=== PATIENT | male | born 1965 | race Caucasian/White ===

== ENCOUNTER → 2024-04-30 14:00 | Outpatient (REF) | payer OTHER, SELFPAY | LOC: HWRAD 14:00 | PROVIDERS: ATTENDING PHYSICIAN Surgery; FAMILY PHYSICIAN Family Medicine | DX: N20.0 Calculus of kidney (principal) | CPT/HCPCS: 76775 ==

== ENCOUNTER 2024-12-30 11:30 | Emergency (ER) | payer OTHER, SELFPAY ==
[2024-12-30 11:39] VITALS: BP 169/100
[2024-12-30] MEDS: VALIUM 2 MG PO (13:06)
[2024-12-30] MEDS: TORADOL 15 MG IM (13:07)
--- NOTE | 2024-12-30 13:07 | ED.GENMED ---
History of Present Illness
General
Chief Complaint: Musculo-Skeletal Complaint
Time Seen by Provider: 12/30/24 12:04
History of Present Illness
History of Present Illness:
59-year-old male with history of hypertension and diabetes presenting to the emergency department for right-sided back pain. Patient reports symptoms for the past week. Pain is on the right side of the back, radiates down his leg to his knee.
Pain waxes and wanes with intermittent episodes of severe pain. Notes chronic neuropathy, denies any acute numbness or tingling. Denies any recent injury or trauma. Denies fever. Denies bowel or bladder complaints. Does report history of
sciatica to the left side of his back, saw orthopedics and had injections. Patient did see his primary care doctor for this pain, was prescribed a steroid pack and cyclobenzaprine with mild relief. Denies any weakness. Denies additional acute
medical complaints
Past History
Past History
ED Past Medical History: HTN and Other (sciatica, Herniated disc, Kidney stones)
ED Past Surgical History: Orthopedic and Other (vasectomy)
Social History
Tobacco: Non-smoker
Alcohol: Occasional
Drug: None
Personal:
Living: with family
Employment: Employed
Family History
Family History: Hypertension and CAD
Phy Exam
Physical Exam
Physical Exam:
General: Well-appearing, no clinical signs of dehydration, nontoxic and in no acute distress
HEENT: protecting airway
Neck: appears supple
CV: Normal heart rate, regular rhythm
Resp: No accessory muscle use, no increased work of breathing, lungs clear to auscultation bilaterally
Abd: No distention
Extremities: No deformities, no swelling. Distal sensation and pulses intact. Range of motion to the right lower extremity is intact. Mild tenderness to the right lower lumbar musculature. No overlying skin changes.
Neuro: alert, no focal neurologic deficit
: deferred
Rectal: deferred
Psych: Normal affect
Skin: Intact
Course
Orders/Labs/Results
Orders:
Orders
12/30/24 12:34
Diazepam [Valium] 2 mg PO NOW STA
Ketorolac [Toradol] 15 mg IM NOW STA
US Periph Venous LOWER Ext RT Urgent
Comment:
Reason For Exam: pain
Vital Signs
Initial and Last Documented VS:
Initial Vital Signs
Temp Pulse Resp BP Pulse Ox
98.0 F 77 16 169/100 98
12/30/24 11:39 12/30/24 11:39 12/30/24 11:39 12/30/24 11:39 12/30/24 11:39
Last Documented Vital Signs
Temp Pulse Resp BP Pulse Ox
98.0 F 77 16 169/100 98
12/30/24 11:39 12/30/24 11:39 12/30/24 11:39 12/30/24 11:39 12/30/24 11:39
MDM/Problems Addressed
MDM/Problems Addressed:
59-year-old male with history of hypertension and diabetes presenting for right lower extremity pain. Vital signs on arrival significant for high blood pressure.
On exam patient is resting comfortably, however while in examination room, did have episode of pain. Overall benign examination of the right lower extremity. No infectious findings no neurovascular compromise. No report of trauma with range of
motion intact. Do not suspect any spinal fracture in the absence of any direct trauma, and no midline spinal tenderness. No fever, systemic symptoms, or midline tenderness, without concern for spinal abscess or infection. No red flag such as
bowel or bladder incontinence, focal weakness, or any sensory deficits on exam, without present concern for spinal compression. Symptoms are consistent with sciatica. Patient does have some mild tenderness to the right calf. Will screen with
ultrasound to ensure no DVT. Valium and Toradol administered for pain. Will reassess.
15:15 - Ultrasound without evidence of DVT. At this time feel stable for discharge with continued outpatient supportive therapy. Patient has an appointment already scheduled with orthopedics tomorrow. Return precautions discussed and patient
verbalized understanding
*Critical Care Note
Total Time (30-74mins, 75-104mins- exclusive of procedures): Not Applicable
ED Attending Note
-
Portions of this chart may have been created with voice recognition software.� Occasional wrong word or��sound alike� substitutions may have occurred due to the inherent limitations of voice recognition software.
Discharge Plan
Departure
Prescriptions:
No Action
aspirin [Aspir-Low] 81 MG tablet,delayed release (DR/EC)
81 mg PO DAILY
coenzyme [id number] [Co Q-10 (with Vit E)] 1 EACH capsule
1 ea PO DAILY
Cinnamon
1,000 mg PO DAILY
Echinacea
1 tab PO DAILY
Multivitamin
1 tab PO DAILY
Vitamin D
1,000 units PO DAILY
omeprazole [Prilosec] 10 MG capsule,delayed release(DR/EC)
10 mg PO DAILY
ibuprofen [Advil] 200 MG tablet
600 mg PO PRN PRN (Reason: pain)
olmesartan 20 MG tablet
20 mg PO DAILY
Zinc Tab
5 mg PO DAILY
fexofenadine [Rosi] 180 MG tablet
180 mg PO DAILY
montelukast 10 MG tablet
10 mg PO DAILY
Referrals:
Luis Arevalo MD [Family Provider] -
Interventions
Interventions:
*Risk Screen - Suicide Last Done: 12/30/24 11:39
*General Assessment Last Done: 12/30/24 13:13
*Neglect/Abuse Screening Last Done: 12/30/24 11:39
*ED- Fall Risk Assessment Last Done: 12/30/24 13:13
ED-Musculoskeletal Assessment Last Done: 12/30/24 13:13
Discharge Date and Time
Print Language: SPANISH
[2024-12-30 13:12] VITALS: BMI 49.2
== END 2024-12-30 16:03 | disposition home or self-care (01) ==
LOC: EMR 11:30
PROVIDERS: EMERGENCY PHYSICIAN Student in an Organized Health Care Education/Training Program; FAMILY PHYSICIAN Family Medicine; OTHER PHYSICIAN Physical Medicine & Rehabilitation
DX: M79.604 Pain in right leg (principal); M54.9 Dorsalgia, unspecified; I10 Essential (primary) hypertension; E11.9 Type 2 diabetes mellitus without complications; Z87.39 Personal history of other diseases of the musculoskeletal system and connective tissue
CPT/HCPCS: 96372; 99284; 93971

== ENCOUNTER 2025-02-16 05:56 | Day surgery (SDC) | payer OTHER, SELFPAY ==
[2025-01-31 13:52] VITALS: BMI 44.3
[2025-01-31 13:56] LABS: Hematocrit 49.6 % (39.0-52.0); Hemoglobin 16.5 g/dL (13.0-18.0); Mean Corp Hgb Conc. 33.3 g/dL (33.0-37.0); Mean Corpuscular Hgb 27.6 pg (27.0-31.0); Mean Corpuscular Volume 82.9 fL (80.0-94.0); Mean Platelet Volume 10.2 fL (7.4-10.4); Platelet Count 323 10^3/uL (130-400); Red Blood Cell Count 5.98 10^6/uL (4.70-6.10); Red Cell Dist. Width 14.6 % (11.5-14.5); White Blood Cell Count 9.3 10^3/uL (4.8-10.8)
[2025-01-31 14:19] LABS: ALT (SGPT) 31 U/L (0-50); AST (SGOT) 28 U/L (17-59); Albumin 4.1 g/dl (3.5-5.0); Alkaline Phosphatase 77 U/L (38-126); Blood Urea Nitrogen 16 mg/dl (9-20); Calcium 9.4 mg/dl (8.4-10.2); Carbon Dioxide 27 mmol/L (22-30); Chloride 102 mmol/L (98-107); Estimated Creatinine Clearance 122 ml/min; Glucose 138 mg/dl (70-99); Potassium 4.5 mmol/L (3.5-5.1); Sodium 138 mmol/L (135-145); Total Bilirubin 0.5 mg/dl (0.2-1.3); Total Protein 7.3 g/dl (6.3-8.2); eGFR > 60.00
[2025-02-16] VITALS (12 sets, daily range): BP systolic 93–155; BP diastolic 53–88; PULSE 116; O2SAT 95; BMI 44.3
[2025-02-16] MEDS: CELEBREX 200 MG PO (06:35)
[2025-02-16] MEDS: LYRICA 150 MG PO (06:35)
[2025-02-16] MEDS: TYLENOL 1000 MG PO (06:36)
[2025-02-16] MEDS: METHOCARBAMOL 1500 MG PO (06:36)
[2025-02-16 06:49] LABS: Glucose - Point of Care 100 mg/dl (70-99)
[2025-02-16] MEDS: NORMOSOL-R/PLASMALYTE-A 1000 IV ×3 (06:51→19:59)
[2025-02-16 08:55] LABS: Glucose - Point of Care 119 mg/dl (70-99)
[2025-02-16] MEDS: MORPHINE SULFATE 2 MG IV (09:08)
[2025-02-16] MEDS: MORPHINE SULFATE 4 MG IV (09:28)
--- NOTE | 2025-02-16 10:17 | PTCARENOTE ---
Pt arrived to [facility] at 0945 from PACU in a bed. 93% on 2L of O2. Back dressing with gauze and tegaderm C/D/I. Neurovascular checks started on all 4 extremities. Blood sugar 119 upon arrival. DTV and PVR once pt voids. Admission questions answered.
Care ongoing.
[2025-02-16 10:35] LABS: Glucose - Point of Care 129 mg/dl (70-99)
[2025-02-16] MEDS: FARXIGA 10 MG PO (10:36)
[2025-02-16] MEDS: FLOMAX 0.4 MG PO (10:36)
[2025-02-16] MEDS: ULTRAM 50 MG PO ×3 (10:36→21:35)
[2025-02-16] MEDS: PROTONIX 40 MG PO (10:36)
[2025-02-16 11:50] LABS: Glucose - Point of Care 129 mg/dl (70-99)
[2025-02-16] MEDS: ANCEF 5 IV ×2 (14:35→21:35)
--- NOTE | 2025-02-16 16:15 | W.PN.UPDATE ---
Update Note
Progress Note Update
Lumbar stenosis w/ neurogenic claudication s/p R�L3-L4 hemilaminectomy and�discectomy w/ [facility]ague 02/16/25
- s/p L L4-L5 lumbar discectomy and L5-S1 hemilami w/ [facility]ague 06/2015
DVT prophylaxis - b/l SCDs/TEDS
- Resume ASA POD 5 if hemodynamically stable
HTN - + parameters - monitor BP
ANN, compliant w/ CPAP - monitor O2
- IS
- Resume CPAP HS
NIDDM - monitor BS
- Resume home meds
- + SSI AC while admitted
- Diabetic, carb controlled diet
GERD - continue daily PPI
Ambulatory dysfunction w/ balance difficulties - on fall precautions
- PT/OT
Sciatica - add Lyrica
Reported urinary retention after previous discectomy - monitor voids and PVRs
- Add daily Flomax
Recurrent nephrolithiasis
Cholelithiasis
Hepatic steatosis
DJD
[2025-02-16 16:51] LABS: Glucose - Point of Care 131 mg/dl (70-99)
--- NOTE | 2025-02-16 17:42 | DOWNTIME ---
There was a [employer] Downtime on 02/16/2025 from 1230 to 02/16/2025 at 1550. Downtime documentation of patient's care, including medication administrations, has been reconciled in the electronic record per guidelines. Refer to the
patient's paper chart under the miscellaneous tab to see printed paper medication records and downtime forms.
[2025-02-16] MEDS: COLACE 100 MG PO (19:59)
[2025-02-16] MEDS: LYRICA 75 MG PO (19:59)
[2025-02-16] MEDS: SENOKOT 17.2 MG PO (20:00)
[2025-02-16] MEDS: SINGULAIR 10 MG PO (21:35)
[2025-02-16] MEDS: BENICAR 20 MG PO (21:35)
[2025-02-16 21:37] LABS: Glucose - Point of Care 123 mg/dl (70-99)
[2025-02-17 03:02] VITALS: BP 100/49
[2025-02-17] MEDS: ULTRAM 50 MG PO ×3 (04:03→15:21)
[2025-02-17] MEDS: NORMOSOL-R/PLASMALYTE-A 1000 IV (04:03)
[2025-02-17] MEDS: LIORESAL 5 MG PO (04:57)
[2025-02-17 07:35] VITALS: BP 136/61
[2025-02-17] MEDS: LYRICA 75 MG PO (07:44)
[2025-02-17] MEDS: SENOKOT 17.2 MG PO (07:44)
[2025-02-17] MEDS: PROTONIX 40 MG PO (07:44)
[2025-02-17 07:47] LABS: Glucose - Point of Care 96 mg/dl (70-99)
[2025-02-17] MEDS: FLOMAX 0.4 MG PO (07:47)
[2025-02-17] MEDS: COLACE 100 MG PO (07:47)
[2025-02-17] MEDS: FARXIGA 10 MG PO (07:48)
[2025-02-17] MEDS: CLARITIN 10 MG PO (07:48)
[2025-02-17 08:34] LABS: Hematocrit 43.3 % (39.0-52.0); Hemoglobin 14.5 g/dL (13.0-18.0)
[2025-02-17 09:06] VITALS: BP 126/60; PULSE 103; O2SAT 95
--- NOTE | 2025-02-17 09:10 | CM ---
Cm reviewed medical records. CM met with patient and in room. Patient confirmed demographics. Patient lives independently with . Patient does not have a history of VN, or SNF. Patient has a CPAP from [facility]. Patient is active
with his PCP. Patient uses [facility] for medication services.
Patient plans to use [facility] when medically cleared.
PLAN: Home, Outpatient PT when medically cleared.
[2025-02-17 09:43] LABS: Blood Urea Nitrogen 19 mg/dl (9-20); Calcium 8.7 mg/dl (8.4-10.2); Carbon Dioxide 28 mmol/L (22-30); Chloride 101 mmol/L (98-107); Estimated Creatinine Clearance > 125 ml/min; Glucose 87 mg/dl (70-99); Potassium 4.1 mmol/L (3.5-5.1); Sodium 136 mmol/L (135-145); eGFR > 60.00
[2025-02-17] MEDS: TYLENOL #3 1 TABLET PO (10:40)
[2025-02-17 11:49] LABS: Glucose - Point of Care 101 mg/dl (70-99)
--- NOTE | 2025-02-17 11:56 | W.PN.ORTHO ---
Today's Communication / Plan
-
Await OT recs.
Monitor pain and urination.
Possible d/c later today pending clinically stability.
If brown is needed, will need to set up voiding trial.
Assessment
.
Distal Motor Intact: Yes
Dressing:
Clean, dry and intact.
Assessment:
Lumbar stenosis w/ neurogenic claudication s/p R�L3-L4 hemilaminectomy and�discectomy w/ [facility] 02/16/25
- s/p L L4-L5 lumbar discectomy and L5-S1 hemilami w/ [facility]ague 06/2015
DVT prophylaxis - b/l SCDs/TEDS
- Resume ASA POD 5 since hemodynamically stable
Post-op pain - will switch from Tramadol to Tylenol #3 prn (has tolerated previously)
HTN - + parameters - BPs overall stable
ANN, compliant w/ CPAP - O2 stable on RA
- IS
- Resumed CPAP HS
NIDDM - BS readings stable w/ resumption of home meds
- + SSI AC while admitted
- Continue diabetic, carb controlled diet
GERD - continue daily PPI
Ambulatory dysfunction w/ balance difficulties - on fall precautions
- PT/OT
Sciatica - continue Lyrica
Reported urinary retention after previous discectomy - monitor voids and PVRs
- Continue Flomax
- Did discuss high probability of needing a brown cath upon d/c. Pt somewhat resistant. If brown is needed, will need to set up PV trial w/ urology (sees [facility]).
Recurrent nephrolithiasis
Cholelithiasis
Hepatic steatosis
DJD
Plan
.
Surgery / Date: R�L3-L4 hemilaminectomy and�discectomy w/ [facility]ague 02/16
DVT Prophylaxis: Other (b/l SCDs/TEDs)
Activity:
Out of bed.
PT/OT
Discharge Plan: Home
Subjective
.
.:
Patient examined resting after PT. Awaiting OT.
Did report minor tingling in LLE which has since self resolved (has happened previously). Physical exam WNL.
Low back pain reported and only minimal relief noted w/ Tramadol.
BPH w/ acute on chronic urinary retention.
Vital Signs and Labs
.
Vital Signs and Labs:
Lab Results
02/17/25 07:22
02/17/25 07:22
Temp Pulse Resp BP Pulse Ox
98.9 F 97 18 136/61 95
02/17/25 07:35 02/17/25 07:35 02/17/25 07:35 02/17/25 07:51 02/17/25 07:35
Physical Exam
-
HEENT: No pallor, cyanosis, or jaundice. Throat clear.
NECK: Supple. No JVD.
RESPIRATORY: Lungs clear to auscultation.
CVS: S1, S2 normal. RRR.�
ABDOMEN: Soft, non-tender. No distension. Morbidly obese.
EXTREMITIES: Strength equal, no calf pain with palpation/dorsiflexion. Calves soft. Sensation intact bilateral LEs.
CONTRACTING SPECIALIST: AOx3. No focal deficits. clerk general grossly intact
[2025-02-17 12:22] VITALS: BP 131/59
[2025-02-17 13:18] VITALS: BP 109/66; PULSE 103; O2SAT 96
--- NOTE | 2025-02-17 14:38 | W.PN.UPDATE ---
Update Note
Progress Note Update
Patient continues with acute on chronic urinary retention 2* BPH.
PVRs have measured between 329-532 cc as of recently.
Discussed with patient the risks of continued retention (infection, sepsis) and continued use of straight cath to relieve retention.
He is now agreeable to brown cath. Brown to be placed prior to d/c.
D/c instructions on male brown cath care to be provided.
He will also be provided with VN for assistance. Appreciate CM.
Pt follows Dr. Pickett. Dr. Pickett's office made aware of need for voiding trial.
Nieves's office will call the patient to schedule.
No further concerns re: this patient. Pt feels okay going home today. Did well w/ PT and OT and pain more managable. Will d/c.
--- NOTE | 2025-02-17 14:43 | W.DS.TRANS ---
DC Summary - Vascular Ultrasound Technologist
-
Discharge Instructions:
Discharge Diagnosis/Procedures Lumbar stenosis w/ neurogenic claudication s/p R
L3-L4 hemilaminectomy and�discectomy w/ Dr Montague
02/16/25
Diet Diabetic, Carb Controlled
Additional Diets Adequate hydration advised to prevent low blood
pressures post-surgery.
Activity As tolerated
Additional Activity No heavy lifting >10 lbs
Driving Restrictions Not until seen by your Dr
Bathing Restrictions OK to shower in 4 days
Instructions: How to Care for Your Locke Catheter, Male
Stand-Alone Forms: [facility] Lumbar D/C Inst.
Changes to Home Medications: Yes
Discharge Medications:
DC Medications w/original date entered in [employer]
Cinnamon 1,000 mg PO BID 11/14/16
Echinacea 1 tab PO DAILY 11/14/16
Held on 02/17/25. Instructions: Resume on 02/23/25.
Multivitamin 1 tab PO DAILY 11/14/16
Vitamin D 10,000 units PO DAILY 11/14/16
aspirin 81 mg tablet,delayed release (Aspir-Low) 81 mg PO DAILY 11/14/16
Held on 02/17/25. Instructions: Resume on 02/21/25.
omeprazole 10 mg capsule,delayed release (Prilosec) 10 mg PO DAILY 11/14/16
Zinc 50 mg PO HS 07/02/21
fexofenadine 180 mg tablet (Rosi) 180 mg PO DAILY 03/07/22
montelukast 10 mg tablet 10 mg PO HS 03/11/22
Bee Pollen 1 dose PO DAILY 02/09/25
Collagen Complex 1,600 mg PO DAILY 02/09/25
Flax Seed Oil 1,200 mg PO DAILY 02/09/25
Held on 02/17/25. Instructions: Resume on 02/23/25.
Tumeric 2,250 mg PO DAILY 02/09/25
Held on 02/17/25. Instructions: Resume on 02/23/25.
coenzyme Q10 100 mg capsule (CoQ-10) 100 mg PO DAILY 02/09/25
Held on 02/17/25. Instructions: Resume on 02/23/25.
dapagliflozin propanediol 10 mg tablet 10 mg PO DAILY 02/09/25
magnesium 200 mg tablet 400 mg PO DAILY 02/09/25
Saccharomyces boulardii 250 mg capsule (Florastor) 250 mg PO BID #10 caps 02/17/25
acetaminophen 300 mg-codeine 30 mg tablet 1 - 2 tab PO Q6H PRN moderate-severe pain #30 tabs 02/17/25
acetaminophen 325 mg tablet 650 mg (2 x 325 mg) PO Q6HPRN PRN mild pain #60 tabs 02/17/25
albuterol sulfate 90 mcg/actuation aerosol inhaler 1 puff inhalation R Q4HPRN PRN wheeze/SOB #8.5 grams 02/17/25
cephalexin 500 mg capsule 500 mg PO QID #20 caps 02/17/25
cyclobenzaprine 5 mg tablet 5 mg PO TID PRN muscle spasm #15 tabs 02/17/25
docusate sodium 100 mg capsule 100 mg PO BID #30 caps 02/17/25
hydrochlorothiazide 25 mg tablet 25 mg PO DAILY #1 tab 02/17/25
olmesartan 20 mg tablet 20 mg PO HS #1 tab 02/17/25
ondansetron HCl 4 mg tablet 4 mg PO Q6H PRN nausea and vomiting #30 tabs 02/17/25
pregabalin 75 mg capsule 75 mg PO BID neuropathic pain #15 caps 02/17/25
sennosides 8.6 mg tablet (Katerine-rayshawn) 17.2 mg (2 x 8.6 mg) PO BID #30 tabs 02/17/25
tamsulosin 0.4 mg capsule 0.4 mg PO DAILY #10 caps 02/17/25
Home Medication Changes
Saccharomyces boulardii 250 mg capsule (Florastor) 250 mg PO BID #10 caps 02/17/25
acetaminophen 300 mg-codeine 30 mg tablet 1 - 2 tab PO Q6H PRN moderate-severe pain #30 tabs 02/17/25
acetaminophen 325 mg tablet 650 mg (2 x 325 mg) PO Q6HPRN PRN mild pain #60 tabs 02/17/25
cephalexin 500 mg capsule 500 mg PO QID #20 caps 02/17/25
cyclobenzaprine 5 mg tablet 5 mg PO TID PRN muscle spasm #15 tabs 02/17/25
docusate sodium 100 mg capsule 100 mg PO BID #30 caps 02/17/25
ondansetron HCl 4 mg tablet 4 mg PO Q6H PRN nausea and vomiting #30 tabs 02/17/25
pregabalin 75 mg capsule 75 mg PO BID neuropathic pain #15 caps 02/17/25
sennosides 8.6 mg tablet (Katerine-rayshawn) 17.2 mg (2 x 8.6 mg) PO BID #30 tabs 02/17/25
tamsulosin 0.4 mg capsule 0.4 mg PO DAILY #10 caps 02/17/25
Pending Results: No
--- NOTE | 2025-02-17 14:57 | CM ---
Patient is leaving with brown catheter and is requesting VN assistance. Cm updated [facility] with new referral.
PLAN: home with [facility]
--- NOTE | 2025-02-17 15:24 | VNURNOTE ---
Home Health Liaison spoke with patient and spouse to discuss [facility] nurse/therapy, visits, schedule and homebound status. They are agreeable and understand that visits at home will be 2-3 x per week to assess and teach medical and brown management.
Patient is aware that [facility] will contact them for start of care in 1-2 days after discharge from .
[facility] referral completed in [facility].
[2025-02-17 15:47] VITALS: BP 130/54
== END 2025-02-17 16:45 | disposition home or self-care (01) ==
LOC: SDS 05:56
PROVIDERS: Physician Assistant; ATTENDING PHYSICIAN Orthopaedic Surgery Orthopaedic Surgery of the Spine; FAMILY PHYSICIAN Family Medicine
DX: M48.062 Spinal stenosis, lumbar region with neurogenic claudication (principal)
CPT/HCPCS: C9757; C1713; 36415; 72020; 80048; 80053; 82962; 85014; 85018; 85027; 87070; 93005; 97116; 97162; 97167; 97530